=== PATIENT | male | born 1990 ===

== ENCOUNTER 2016-12-04 18:14 | Emergency (ER) | payer SELFPAY ==
--- NOTE | 2016-12-04 18:15 | EDPHY ---
H & P Time Seen by Provider: 12/04/16 18:19 Medical Decision Making ED Course/Re-evaluation: CHIEF COMPLAINT: Med clearance for incarceration HISTORY OF PRESENT ILLNESS: This patient is a 26 year old male who presents to the Emergency Department via EMS with [facility] for medical clearance prior to incarceration. EMS tells me that the patient was approached by [facility] and became immediately combative. Upon arrival, he is combative but appears to be mentating appropriately. He has multiple superficial abrasions. Further medical history is unobtainable secondary to the patient's altered mental status. REVIEW OF SYSTEMS: A 10 point review of systems was performed and is negative with the exception of the elements mentioned in the history of present illness. PHYSICAL EXAM: General Appearance: Alert, well hydrated, appropriate, and non-toxic appearing. Head: Atraumatic without scalp tenderness or obvious injury Eyes: Pupils equal, round, reactive to light and accommodation, EOMI, no trauma , no injection. Ears: Clear bilaterally, no perforation, normal landmarks, horizontal nystagmus Nose: Superficial abrasion, no rhinorrhea, clear. Throat: There is no erythema or exudates, no lesions, normal tonsils, mucus membranes moist. Neck: Supple, 2+ carotid upstroke, nontender, no lymphadenopathy. Respiratory: No retractions, no distress, no wheezes, and no accessory muscle use. Lungs are clear to auscultation bilaterally. Cardiovascular: Regular rate and rhythm, no murmurs, rubs, or gallops. Bilateral carotid, radial, dorsalis pedis, and posterior tibial pulses intact. Good capillary refill all extremities. Gastrointestinal: Abdomen is soft, nontender, non-distended, no masses, no rebound, no guarding, no peritoneal signs. Musculoskeletal: Normal active ROM of all extremities, superficial abrasion over right anterior hip. Neurological: Alert, appropriate, and interactive. The patient has normal DTRs and non-focal cranial nerves, motor, sensory, and cerebellar exam. Skin: No rashes, good turgor, no nodules on palpation. Past medical history: Non-contributory. Past surgical history: Non-contributory. Family history: Non-contributory. Social history: Apparent use of alcohol. Unknown illicit drug use. DIFFERENTIAL DIAGNOSIS: Differential diagnosis for the patient's altered mental status includes but is not limited to alcohol intoxication or drug abuse. MEDICAL DECISION MAKIN: Patient medically cleared by myself on exam. 182: Discussed the patient's case with the RN at the detention who understands that the patient has been medically cleared by our facility. Departure - Departure Disposition: Home, Routine, Self-Care Clinical Impression: Medical clearance for incarceration Condition: Good Instructions: Alcohol Intoxication (ED) Additional Instructions: Proceed with incarceration. Return to the Emergency Department with severe headache, confusion, vision changes, thoughts of suicide or self-harm, or other serious concerns. Referrals: [facility] 24 Hours [Outside] - As per Instructions Report Scribed for: Kraig Pearce Report Scribed by: Chayo Dunlap Date of Report: 12/04/16 Time of Report: 18:19
[2016-12-04 18:30] VITALS: BP 143/118; PULSE 130; RESP 24; TEMP 98.6; O2SAT 98
== END 2016-12-04 18:26 | disposition home or self-care (01) ==
DX: Z02.89 Encounter for other administrative examinations (principal)